=== PATIENT | male | born 1960 | race Caucasian/White ===

== ENCOUNTER 2024-11-04 08:23 | Emergency (ER) | payer OTHER ==
[2024-11-04 08:31] VITALS: BP 107/65; PULSE 95; RESP 18; TEMP 97.9; BMI 19.9
[2024-11-04] MEDS ORDERED: DIPHTH,PERTUSS(ACELL),TET 0.5 ML DISP.SYRIN IM ONE (08:59)
[2024-11-04] MEDS: DIPHTH,PERTUSS(ACELL),TET 0.5 ML DISP.SYRIN IM ONE (09:02)
== END 2024-11-04 11:09 | disposition home or self-care (01) ==
LOC: FER 08:23
PROC: 0HQ1XZZ Repair Face Skin, External Approach (ICD-10-PCS; principal; 2024-11-04)
PROC: 2W3BX1Z Immobilization of Left Upper Arm using Splint (ICD-10-PCS; 2024-11-04)
PROC: 3E0234Z Introduction of Serum, Toxoid and Vaccine into Muscle, Percutaneous Approach (ICD-10-PCS; 2024-11-04)
DX: S01.81XA Laceration without foreign body of other part of head, initial encounter (principal); S59.912A Unspecified injury of left forearm, initial encounter; R94.31 Abnormal electrocardiogram [ECG] [EKG]; Z23 Encounter for immunization; W54.0XXA Bitten by dog, initial encounter; Y92.410 Unspecified street and highway as the place of occurrence of the external cause
CPT/HCPCS: 70450-TC; 72125-TC; 73030-TC-LT-FY; 73070-TC-LT-FY; 90715; 93005; 99285-25